=== PATIENT | female | born 1940 | race Caucasian/White ===

== ENCOUNTER 2020-12-25 09:44 | Emergency (ER) | payer OTHER ==
[~2020-12-25] VITALS: Ht 152.4 cm; Wt 59.0 kg
== END 2020-12-25 13:35 | disposition home or self-care (01) ==
LOC: ER 09:44
DX: S00.83XA Contusion of other part of head, initial encounter (principal); S60.212A Contusion of left wrist, initial encounter; S80.02XA Contusion of left knee, initial encounter; M79.642 Pain in left hand; W01.198A Fall on same level from slipping, tripping and stumbling with subsequent striking against other object, initial encounter; Y93.89 Activity, other specified; Y92.413 State road as the place of occurrence of the external cause; Y99.8 Other external cause status